=== PATIENT | female | born 1985 | race Caucasian/White ===

== ENCOUNTER 2019-04-10 12:58 | Emergency (ER) | payer SELFPAY ==
--- NOTE | 2019-04-10 14:31 | RAD ---
CHEST TWO VIEWS: 04/10/2019 HISTORY: Chest and nasal congestion for one to two weeks. COMPARISON: None. FINDINGS: No pneumothorax, pleural fluid, focal consolidation or alveolar edema. Heart and mediastinal contours are unremarkable. IMPRESSION: No acute findings. POS: [facility]
== END 2019-04-10 15:33 | disposition home or self-care (01) ==
LOC: ERS 12:58
DX: J06.9 Acute upper respiratory infection, unspecified (principal); J30.9 Allergic rhinitis, unspecified; F41.9 Anxiety disorder, unspecified; F31.9 Bipolar disorder, unspecified; Z87.891 Personal history of nicotine dependence
CPT/HCPCS: 71046

== ENCOUNTER 2019-05-30 09:25 | Emergency (ER) | payer SELFPAY | END 2019-05-30 10:30 | disposition left against medical advice (07) | LOC: ERS 09:25 | DX: Z53.21 Procedure and treatment not carried out due to patient leaving prior to being seen by health care provider (principal) ==

== ENCOUNTER 2019-06-08 19:41 | Inpatient (IN) | payer SELFPAY ==
[2019-06-08 20:42] LABS: #Basophils 0.1 thou/uL (0.0-0.2); #Eosinphils 0.1 thou/uL (0.0-0.7); #Lymphocytes 1.7 thou/uL (1.20-3.40); #Monocytes 1.7 thou/uL (0.11-0.59); #Neutrophils 13.2 thou/uL (1.40-6.50); %Basophils 0.3 % (0.0-1.0); %Eosinophils 0.8 % (0.0-10.0); %Lymphocytes 9.8 % (21.0-51.0); %Monocytes 10.4 % (0.0-10.0); %Neutrophils 78.7 % (42.0-75.0); Hemoglobin 13.7 g/dL (12.0-16.0); Mean Corpuscular HGB CONC 33.8 g/dL (32.0-36.0); Mean Corpuscular Hemoglobin 33.7 pg (27.0-31.0); Mean Corpuscular Volume 99.8 fL (78.0-98.0); Mean Platelet Volume 9.2 fL (7.4-10.4); Platelet Count 226 thou/uL (130-400); RBC Distribution Width 12.3 % (11.5-14.5); Red Blood Cell (RBC) Count 4.08 mill/uL (4.20-5.40); White Blood Cell (WBC) Count 16.8 thou/uL (4.8-10.8)
[2019-06-08 20:47] LABS: BHCG - Serum Negative (NEGATIVE); Pregs Control Background? CLEAR/WHITE (CLR/WHITE); Pregs Control Bar Appear? YES (CONTROL BAR)
[2019-06-08 20:56] LABS: ALT (SGPT) 17 U/L (8-55); AST (SGOT) 17 U/L (5-34); Albumin 3.8 g/dL (3.5-5.0); Alkaline Phosphatase 56 U/L (40-110); Anion Gap 14 mmol/L (10-20); BUN (Urea Nitrogen) 7 mg/dL (7.0-18.7); Bilirubin, Total 0.4 mg/dL (0.2-1.2); Calc. Creatinine Clearance 0 mL/min (70-130); Calcium 8.8 mg/dL (7.8-10.44); Carbon Dioxide 21 mmol/L (22-29); Chloride 109 mmol/L (98-107); Estimated GFR-MDRD 79; Globulin 3.5 g/dL (2.4-3.5); Glucose 96 mg/dL (70-105); Protein, Total 7.3 g/dL (6.0-8.3); Sodium 140 mmol/L (136-145)
[2019-06-08 20:57] LABS: Alcohol Less than 10 mg/dL (Less than 10); Salicylate Less than 8.0 mg/dL (15.0-30.0)
[2019-06-08 21:13] LABS: Thyroid Stimulating Hormone 1.2731 uIU/mL (0.35-4.94)
[2019-06-08] MEDS ORDERED: Lorazepam 2 MG/ML VIAL ONE (21:44)
[2019-06-08] MEDS ORDERED: Acetylcysteine 20% (200mg/mL) 15,000 MG in Dextrose 5% in Water 200 ML IV SCH (22:00)
[2019-06-08 23:15] LABS: Bacteria/HPF 3+ HPF (None Seen); Bilirubin Negative (Negative); Blood, Urine Negative (Negative); Clarity Turbid (Clear); Glucose, Urine (Dipstick) Normal (Negative); Leukocyte 75 Leu/uL (Negative); Nitrite 2+ (Negative); Protein, Urine (Dipstick) Negative (Neg-Trace); RBC/HPF 0-3 HPF (0-3); Squamous Epithelial 0-3 HPF (0-3); Urobilinogen Normal mg/dL (Less than 2)
[2019-06-08 23:22] LABS: Medtox Reader # READER 4; Methamphetamine Detected (NotDetected); THC/Cannabinoid Screen Detected (NotDetected)
[2019-06-08 23:23] LABS: Amphetamine Detected (NotDetected); Barbiturates Screen Not Detected (NotDetected); Benzodiazepine Screen Detected (NotDetected); Cocaine Metabolite Screen Not Detected (NotDetected); Methadone Detected (NotDetected); Opiate Screen Not Detected (NotDetected); Oxycodone Screen Not Detected (NotDetected); Phencyclidine (PCP) Not Detected (NotDetected); Tricyclic Screen Detected (NotDetected)
[2019-06-08 23:24] LABS: Medtox Control Line Valid? VALID (VALID)
[2019-06-08] MEDS ORDERED: Acetylcysteine 20% (200mg/mL) 5,000 MG in Dextrose 5% in Water 500 ML IV SCH (23:45)
--- NOTE | 2019-06-08 23:46 | CT ---
CT head noncontrast HISTORY: Altered mental status. FINDINGS: There is no evidence of acute intracranial hemorrhage or infarct. The ventricles appear nor mal in size, shape and position. There is no mass effect or shift of midline structures. Visualized paranasal sinuses remain well aerated. IMPRESSION : No acute intracranial abnormalities are demonstrated.
[2019-06-09] MEDS ORDERED: Ondansetron ODT 4 MG TAB PO PRN (01:30)
[2019-06-09] MEDS ORDERED: Ondansetron PF 4 MG/2 ML Vial IVP PRN (01:30)
[2019-06-09 02:16] VITALS: BMI 29.9
--- NOTE | 2019-06-09 03:04 | HP ---
PRIMARY CARE PHYSICIAN: Jolly Rincon. CHIEF COMPLAINT: Altered mental status. HISTORY OF PRESENT ILLNESS: This is a 34-year-old white female with a history of methamphetamine and tobacco abuse, who presented to the emergency room via EMS for altered mental status. Reportedly, the patient was with some friends and reported that she took some Excedrin around 4:30. The friends noticed that the patient started becoming confused and altered around that time, eventually EMS was called. She was very agitated and combative with them and eventually received 3 mg of Ativan by EMS; at which point, she calmed down some. She is still very confused in the emergency room, not oriented and not able to speak clearly. She did have a tox screen done in the emergency room, which showed methadone, tricyclics, amphetamines, methamphetamines, benzodiazepines, and cannabinoids in her urine, but also with very elevated acetaminophen level of 267. This was collected at about 8:30, about 4 hours after her onset of confusion and the presumed time of her ingestion of Tylenol. The patient had normal liver function tests when she came in, so she was started on the N-acetylcysteine 20-hour protocol in the emergency room and is being put in observation in the hospital. The patient is currently confused, little bit sleepy, but easily arousable, says phrases that do not really makes sense, and is not able to follow commands very well, is currently in soft restraints. REVIEW OF SYSTEMS: Unable to obtain secondary to the patient's mental status. PAST MEDICAL HISTORY: All history taken from the chart, heart arrhythmia of unknown type. PAST SURGICAL HISTORY: 1. Cholecystectomy. 2. section x3. 3. Tubal ligation. PSYCHIATRIC HISTORY: 1. Bipolar disorder. 2. Anxiety with panic attacks. 3. PTSD. 4. Insomnia. SOCIAL HISTORY: Abuses methamphetamines. Former tobacco abuser. Smokes cigarettes. No alcohol use per the chart. The patient is single. Her father is listed as her next of kin. His name is Shashank Waggoner. ALLERGIES: NO KNOWN DRUG ALLERGIES. CURRENT MEDICATIONS: Unable to obtain secondary to the patient's mental status. PHYSICAL EXAMINATION: VITAL SIGNS: Blood pressure 140/90, pulse 70, respirations 20, temperature 98.6, and O2 saturation 99% on room air. GENERAL: This is a well-developed, well-nourished white female, who is sleepy but arousable, very confused, mildly agitated. HEENT: Pupils are equal, round, and reactive to light. Oropharynx is clear without lesions, erythema, or exudate. NECK: Supple. No lymphadenopathy. No thyroid nodules or enlargement. HEART: Regular rate and rhythm. No murmurs, rubs, or gallops. LUNGS: Clear to auscultation bilaterally. No wheezes, crackles, or rhonchi. ABDOMEN: Soft, nontender to palpation. Normoactive bowel sounds. No hepatosplenomegaly or other masses. EXTREMITIES: No clubbing, cyanosis, or edema. SKIN: No rashes or lesions noted. NEUROLOGIC: The patient is moving all of her extremities spontaneously. She has no facial droop. Her speech is confused, but not slurred. PSYCHIATRIC: She is sleepy, but arousable. Oriented x1. Reportedly, more clear now per the nurse than she was when she first came in. LABORATORY DATA: CBC with a white blood cell count of 16,000, 79% neutrophils. Hemoglobin, hematocrit, and platelets all normal. Complete metabolic panel is notable for chloride of 109, bicarb of 21, and the rest is normal. TSH was normal. Serum test was negative. Urinalysis showed 2+ nitrites, 11 to 20 white blood cells, 3+ bacteria. Toxicology screen as per HPI. CT of the brain done in the emergency room shows no intracranial abnormalities. EKG done in the emergency room shows normal sinus rhythm with normal ST segments and T-waves, normal axis, and no QT prolongation. ASSESSMENT: 1. Tylenol overdose. The patient is in the significantly toxic range; however, she has no evidence of liver dysfunction at this time and we have started her on the acetylcysteine protocol. She is receiving the second dose now, the first dose of 150 mg/kg IV over 60 minutes and then currently to 50 mg/kg over 4 hours of infusion; however, write an order to do another 100 mg/kg over 16 hours for her third and final infusion, and we will monitor her liver function tests over the next day. 2. Altered mental status secondary to polysubstance abuse. We will monitor her closely in the hospital with a sitter and suicide precautions for possibility of this being an intentional overdose. Once the patient is cleared medically, she will need an [facility] evaluation prior to discharge. We will use soft restraints for now until she clears more and is able to follow commands better. 3. Leukocytosis, likely stress response. No evidence of infection at this time, though she does have some mild abnormalities of her urine. When she clears, we can reassess to see if she has any urinary tract infection sort of symptoms. 4. Gastrointestinal prophylaxis, put the patient on Pepcid twice a day. 5. Deep venous thrombosis prophylaxis. The patient is at low risk. We will use sequential compression devices while in bed. CODE STATUS: The patient is a full code. Her next of kin is her father, Shashank Waggoner. Job ID: [id number]
[2019-06-09] MEDS: Sodium Chloride 0.9% 1,000 ML IV SCH ×2 (03:26→11:18)
[2019-06-09] MEDS ORDERED: WATER IVPB SCH (04:15)
[2019-06-09] MEDS ORDERED: DEXTROSE 5% IVPB SCH (04:15)
[2019-06-09] MEDS ORDERED: ACETYLCYSTEINE IVPB SCH (04:15)
[2019-06-09 06:09] LABS: #Basophils 0.1 thou/uL (0.0-0.2); #Eosinphils 0.1 thou/uL (0.0-0.7); #Lymphocytes 2.6 thou/uL (1.20-3.40); #Neutrophils 10.9 thou/uL (1.40-6.50); %Basophils 0.3 % (0.0-1.0); %Eosinophils 0.7 % (0.0-10.0); %Lymphocytes 17.8 % (21.0-51.0); %Monocytes 6.8 % (0.0-10.0); %Neutrophils 74.5 % (42.0-75.0); Hemoglobin 15.4 g/dL (12.0-16.0); Mean Corpuscular Hemoglobin 33.7 pg (27.0-31.0); Mean Corpuscular Volume 99.2 fL (78.0-98.0); Mean Platelet Volume 9.2 fL (7.4-10.4); Platelet Count 215 thou/uL (130-400); RBC Distribution Width 12.4 % (11.5-14.5); Red Blood Cell (RBC) Count 4.57 mill/uL (4.20-5.40); White Blood Cell (WBC) Count 14.6 thou/uL (4.8-10.8)
[2019-06-09 06:43] LABS: ALT (SGPT) 28 U/L (8-55); AST (SGOT) 28 U/L (5-34); Albumin 3.7 g/dL (3.5-5.0); Alkaline Phosphatase 53 U/L (40-110); Anion Gap 14 mmol/L (10-20); BUN (Urea Nitrogen) 9 mg/dL (7.0-18.7); Bilirubin, Total 0.8 mg/dL (0.2-1.2); Calc. Creatinine Clearance 153 mL/min (70-130); Calcium 8.6 mg/dL (7.8-10.44); Carbon Dioxide 18 mmol/L (22-29); Chloride 109 mmol/L (98-107); Estimated GFR-MDRD 84; Globulin 3.5 g/dL (2.4-3.5); Glucose 98 mg/dL (70-105); Potassium 3.4 mmol/L (3.5-5.1); Protein, Total 7.2 g/dL (6.0-8.3); Sodium 138 mmol/L (136-145)
[2019-06-09] MEDS: Famotidine/PF 20 mg/2ml Vial SLOW IVP SCH ×2 (08:16→19:42)
[2019-06-09] MEDS: Lorazepam 1 MG TAB PO PRN ×2 (11:25→19:42)
--- NOTE | 2019-06-09 12:26 | PDOC.HOSPP ---
- Subjective Encounter Date: 06/09/19 Encounter Time: 12:25 Subjective: f/u for intentional overdose with multiple medications including Acetaminophen. Received NAC protocol but only got two doses per nursing. Pt admits to wanting to harm herself and was sad that she didn't succeed in killing herself. - Objective Vital Signs & Weight: Vital Signs (12 hours) Temp Pulse Resp BP BP Pulse Ox 06/09/19 11:26 98.8 F 80 16 129/63 98 06/09/19 07:34 98.3 F 75 16 141/66 H 98 06/09/19 05:00 98 F 70 20 128/85 100 06/09/19 02:00 98.1 F 83 18 134/85 100 06/09/19 01:30 98.1 F 83 18 134/85 100 Weight Weight 209 lb I&O: 06/08/19 06/09/19 06/10/19 06:59 06:59 06:59 Intake Total 625 Balance 625 Result Diagrams: 06/09/19 05:59 06/09/19 05:59 Additional Labs: Laboratory Tests 06/08/19 06/08/19 06/08/19 20:33 20:33 20:33 WBC 16.8 H Potassium 4.0 Carbon Dioxide 21 L Urine Methadone Screen Acetaminophen 267.0 H* Ur Tricyclics Screen Ur Amphetamines Screen U Methamphetamines Scrn U Benzodiazepines Scrn U Cannabinoids Screen Plasma Alcohol Less than 10 06/08/19 23:01 WBC Potassium Carbon Dioxide Urine Methadone Screen Detected H Acetaminophen Ur Tricyclics Screen Detected H Ur Amphetamines Screen Detected H U Methamphetamines Scrn Detected H U Benzodiazepines Scrn Detected H U Cannabinoids Screen Detected H Plasma Alcohol Radiology Reviewed by me: Yes (CT brain - negative) Hospitalist ROS - Medication Medications: Active Medications Generic Name Dose Route Start Last Admin Trade Name Freq PRN Reason Stop Dose Admin Famotidine 20 mg 06/09/19 09:00 06/09/19 08:16 Pepcid SLOW IVP 20 mg Q12HR RONNIE Administration Acetylcysteine 10,000 mg/ 550 mls @ 34.375 mls/hr 06/09/19 04:15 06/09/19 06: 02 Dextrose/Water IVPB 06/09/19 20:14 550 mls 0415 RONNIE Administration Lorazepam 1 mg 06/09/19 11:16 06/09/19 11:25 Ativan PO 1 mg Q6H PRN Administration Anxiety - Exam General Appearance: awake alert General - other findings: tearful Eye: PERRL, anicteric sclera ENT: normocephalic atraumatic, no oropharyngeal lesions Neck: supple, symmetric, no JVD, no thyromegaly Heart: RRR, no murmur, no gallops, no rubs, normal peripheral pulses Respiratory: CTAB, no wheezes, no rales, no ronchi, normal chest expansion, no tachypnea Gastrointestinal: soft, non-tender, non-distended, normal bowel sounds, no palpable masses Extremities: no cyanosis, no clubbing Extremities - other findings: LUE with edema in prior IV site Skin: normal turgor Neurological: cranial nerve grossly intact, no new deficit Musculoskeletal: normal tone, normal strength Psychiatric: A&O x 3 Psychiatric - other findings: agitated, alert Hosp A/P (1) Suicide attempt by acetaminophen overdose Code(s): T39.1X2A - POISONING BY 4-AMINOPHENOL DERIVATIVES, SELF-HARM, INIT Status: Acute Plan: Confirmed with patient who states she just wants to leave and figure things out , not interested in more IV's or NAC or help, s/p 2 doses of NAC last pm but lost IV site during 3rd NAC dose. (2) Polysubstance abuse Code(s): F19.10 - OTHER PSYCHOACTIVE SUBSTANCE ABUSE, UNCOMPLICATED Status: Acute Plan: See above, [facility] consult pending, Ativan PRN (3) Leukocytosis Code(s): D72.829 - ELEVATED WHITE BLOOD CELL COUNT, UNSPECIFIED Status: Acute (4) Toxic metabolic encephalopathy Code(s): G92 - TOXIC ENCEPHALOPATHY Status: Acute Plan: Resolved, pt alert and stating she wants to leave - Plan pediatric social worker, DVT proph w/SCDs s/p 2 complete doses of NAC Pt wanting to leave the hospital does not want to talk to [facility] Security notified, charge nurse notified Ativan PRN Lost IV site due to infiltration but does not want another one placed Consulted [facility] for evaluation AM lab: CMP, CBC
[2019-06-09] MEDS ORDERED: Ziprasidone 20 MG VIAL IM PRN (12:51)
[2019-06-10 06:27] LABS: Hemoglobin 12.8 g/dL (12.0-16.0); Mean Corpuscular HGB CONC 31.9 g/dL (32.0-36.0); Mean Corpuscular Hemoglobin 32.5 pg (27.0-31.0); Mean Platelet Volume 9.4 fL (7.4-10.4); Platelet Count 185 thou/uL (130-400); RBC Distribution Width 12.5 % (11.5-14.5); Red Blood Cell (RBC) Count 3.94 mill/uL (4.20-5.40); White Blood Cell (WBC) Count 8.6 thou/uL (4.8-10.8)
[2019-06-10 06:36] LABS: ALT (SGPT) 36 U/L (8-55); AST (SGOT) 29 U/L (5-34); Albumin 2.9 g/dL (3.5-5.0); Alkaline Phosphatase 41 U/L (40-110); Anion Gap 11 mmol/L (10-20); BUN (Urea Nitrogen) 12 mg/dL (7.0-18.7); Bilirubin, Total 0.3 mg/dL (0.2-1.2); Calc. Creatinine Clearance 166 mL/min (70-130); Calcium 8.1 mg/dL (7.8-10.44); Carbon Dioxide 20 mmol/L (22-29); Chloride 112 mmol/L (98-107); Estimated GFR-MDRD Greater than 90; Globulin 2.9 g/dL (2.4-3.5); Glucose 87 mg/dL (70-105); Potassium 3.7 mmol/L (3.5-5.1); Protein, Total 5.8 g/dL (6.0-8.3); Sodium 139 mmol/L (136-145)
[2019-06-10 06:41] LABS: Eosinophils 3 % (0-10); Lymphocytes 40 % (21-51); MDiff Complete? YES; Monocytes 5 % (0-10); Neutrophil 52 % (42-75)
[2019-06-10] MEDS: Famotidine/PF 20 mg/2ml Vial SLOW IVP SCH ×2 (08:48→20:03)
--- NOTE | 2019-06-10 10:49 | PDOC.PALCO ---
Palliative Care Consult - Consult Details Requesting Physician: Dr Gauthier Reason for Consult: goals of care, coping issues - Pertinent HPI 34 year old female with known methamphetamine and tobacco use. Presented to the emergency room with altered mental status. Friends identified pateint was "confused" and called EMS, transported to [facility] and identified to have acetaminophen toxicity. Admitted for medical management. Expressed she was disappointed she was not successful in ending her life. Toxicology screen positive for multiple drugs. - Pertinent PMH Cardiac arrhythmia, Bipolar disorder, Anxiety, PTSD, - Social History Smoking Status: Current every day smoker Smoking: cigarettes Alcohol Use: daily Drug Use History: marijuana, amphetamines, other (methadone, benzos) Living Situation: independent - Allergies Allergies/Adverse Reactions: Allergies Allergy/AdvReac Type Severity Reaction Status Date / Time No Known Allergies Allergy Unverified 06/09/19 02:15 - Subjective Sleeping, arousable but disengaged. Difficult to obtain a ROS. - ROS Constitutional: lethargic ENT: other (denies sore throat, congestion) Respiratory: other (denies cough or shortness of breath) Gastrointestinal: nausea, other (denies vomiting or diarrhea) Genitourinary: other (Denies dysuria, hematuria) Musculoskeletal: arthritis/arthralgias, other (Hurts all over) - Objective Vital Signs: Vital Signs - Most Recent Temp Pulse Resp BP Pulse Ox 97.9 F 64 19 116/56 L 99 06/10/19 08:00 06/10/19 08:00 06/10/19 08:00 06/10/19 08:00 06/10/19 08:00 Palliative Performance Scale: 80 - Physical Exam Constitutional: NAD HEENT: EOMI, sclera anicteric Respiratory: no wheezing, unlabored breathing Cardiovascular: RRR Gastrointestinal: continent Genitourinary: continent Musculoskeletal: no cyanosis, no clubbing, pulses present Neurology: moves all 4 limbs, no focal deficits Skin: cap refill <2 seconds, no lesions, no rash Psychiatric: flat affect Deviation from normal: depressed - Problem List (1) Palliative care encounter Code(s): Z51.5 - ENCOUNTER FOR PALLIATIVE CARE Current Visit: Yes Status: Acute (2) Polysubstance abuse Code(s): F19.10 - OTHER PSYCHOACTIVE SUBSTANCE ABUSE, UNCOMPLICATED Current Visit: Yes Status: Acute (3) Suicide attempt by acetaminophen overdose Code(s): T39.1X2A - POISONING BY 4-AMINOPHENOL DERIVATIVES, SELF-HARM, INIT Current Visit: Yes Status: Acute (4) Toxic metabolic encephalopathy Code(s): G92 - TOXIC ENCEPHALOPATHY Current Visit: Yes Status: Acute - Plan/Recommendations Plan: Palliative Care introduced. Sitter at bedside. Patient reports nausea, denies vomiting. Was able to eat breakfast. Awaiting evaluation for [facility] and placement in psychiatric facility after medically stable. Therapeutic listening and emotional support. Goal of care in place, with pending evaluation of MH[facility]. Spiritual Care consult placed Palliative care will sign off as GOC in place, and JORGE ALBERTO is her father, patient unable to sign at this time. [60] minutes spent on this encounter with >50% of the time in counseling and coordination of care. Thank you for this very appropriate consult.
--- NOTE | 2019-06-10 18:50 | PDOC.HOSPP ---
- Subjective Encounter Date: 06/10/19 Encounter Time: 11:25 Subjective: f/u for suicide attempt with Tylenol ingestion with polysubstance abuse. Received 3 doses of NAC and currently no new complaints. Awaiting approval for inpt psych unit. - Objective Vital Signs & Weight: Vital Signs (12 hours) Temp Pulse Resp BP Pulse Ox 06/10/19 08:45 99 06/10/19 08:00 97.9 F 64 19 116/56 L 99 Weight Weight 209 lb I&O: 06/09/19 06/10/19 06/11/19 06:59 06:59 06:59 Intake Total 625 3860 Balance 625 3860 Result Diagrams: 06/10/19 06:01 06/10/19 06:01 Additional Labs: Laboratory Tests 06/08/19 06/08/19 06/08/19 20:33 20:33 20:33 WBC 16.8 H Potassium 4.0 Carbon Dioxide 21 L Total Bilirubin AST ALT Alkaline Phosphatase Urine Methadone Screen Acetaminophen 267.0 H* Ur Tricyclics Screen Ur Amphetamines Screen U Methamphetamines Scrn U Benzodiazepines Scrn U Cannabinoids Screen Plasma Alcohol Less than 10 06/08/19 06/10/19 23:01 06:01 WBC Potassium Carbon Dioxide Total Bilirubin 0.3 AST 29 ALT 36 Alkaline Phosphatase 41 Urine Methadone Screen Detected H Acetaminophen Ur Tricyclics Screen Detected H Ur Amphetamines Screen Detected H U Methamphetamines Scrn Detected H U Benzodiazepines Scrn Detected H U Cannabinoids Screen Detected H Plasma Alcohol Hospitalist ROS - Medication Medications: Active Medications Generic Name Dose Route Start Last Admin Trade Name Freq PRN Reason Stop Dose Admin Famotidine 20 mg 06/09/19 09:00 06/10/19 08:48 Pepcid SLOW IVP 20 mg Q12HR RONNIE Administration Lorazepam 1 mg 06/09/19 11:16 06/09/19 19:42 Ativan PO 1 mg Q6H PRN Administration Anxiety - Exam General Appearance: NAD, awake alert Eye: PERRL, anicteric sclera ENT: normocephalic atraumatic, no oropharyngeal lesions Neck: supple, symmetric, no JVD, no thyromegaly, no lymphadenopathy Heart: RRR, no murmur, no gallops, no rubs, normal peripheral pulses Heart - other findings: S1, S2 Respiratory: CTAB, no wheezes, no rales, no ronchi, normal chest expansion Gastrointestinal: soft, non-tender, non-distended, normal bowel sounds, no palpable masses, no hepatomegaly Extremities: no cyanosis, no clubbing, no edema Skin: normal turgor, no lesions Neurological: cranial nerve grossly intact, no new deficit Musculoskeletal: normal tone, normal strength, no muscle wasting Psychiatric: A&O x 3, flat affect Hosp A/P (1) Suicide attempt by acetaminophen overdose Code(s): T39.1X2A - POISONING BY 4-AMINOPHENOL DERIVATIVES, SELF-HARM, INIT Status: Acute Plan: s/p 3 doses of NAC per protocol, continue sitter for 1:1, [facility] evaluation with pending transfer to inpt psych unit (2) Polysubstance abuse Code(s): F19.10 - OTHER PSYCHOACTIVE SUBSTANCE ABUSE, UNCOMPLICATED Status: Acute Plan: See above (3) Leukocytosis Code(s): D72.829 - ELEVATED WHITE BLOOD CELL COUNT, UNSPECIFIED Status: Acute (4) Toxic metabolic encephalopathy Code(s): G92 - TOXIC ENCEPHALOPATHY Status: Acute Plan: Improved, continue sitter for 1:1, limit psychotropes/sedation - Plan social services designee, out of bed/ambulate, DVT proph w/SCDs s/p 3 complete doses of NAC Sitter for 1:1 observation Security notified, charge nurse notified Sara MENDEZ Consulted [facility] for evaluation Likely transfer to inpt psych in 24h AM lab: MARISOL
--- NOTE | 2019-06-10 21:49 | PDOC.EVN ---
Event Note - Event Note Event Note: Notified by RN, patient in need of repeat Tylenol level, INR and EKG in order to initiate transfer to [facility]. Above ordered.
[2019-06-10 23:10] LABS: Acetaminophen Less than 6.0 mcg/mL (10.0-30.0); PTT 24.6 SEC (22.9-36.1); Prothrombin Time 13.6 SEC (12.0-14.7)
[2019-06-11 06:33] LABS: ALT (SGPT) 73 U/L (8-55); AST (SGOT) 50 U/L (5-34); Albumin 2.9 g/dL (3.5-5.0); Alkaline Phosphatase 40 U/L (40-110); Anion Gap 9 mmol/L (10-20); BUN (Urea Nitrogen) 11 mg/dL (7.0-18.7); Bilirubin, Total 0.2 mg/dL (0.2-1.2); Calc. Creatinine Clearance 178 mL/min (70-130); Calcium 8.1 mg/dL (7.8-10.44); Carbon Dioxide 24 mmol/L (22-29); Chloride 110 mmol/L (98-107); Estimated GFR-MDRD Greater than 90; Globulin 2.8 g/dL (2.4-3.5); Glucose 93 mg/dL (70-105); Potassium 3.8 mmol/L (3.5-5.1); Protein, Total 5.7 g/dL (6.0-8.3); Sodium 139 mmol/L (136-145)
[2019-06-11 07:50] VITALS: BP 116/68; TEMP 97.5
[2019-06-11] MEDS: Famotidine/PF 20 mg/2ml Vial SLOW IVP SCH (08:07)
--- NOTE | 2019-06-11 09:23 | PDOC.EVN ---
Event Note - Event Note Event Note: Spoke with Dr. Martinez at [facility] who has accepted the patient for transfer 06/11/19.
--- NOTE | 2019-06-11 09:50 | DIS ---
DATE OF ADMISSION: 06/09/2019 DATE OF DISCHARGE: 06/11/2019 DISCHARGE DIAGNOSES: 1. Suicide attempt by acetaminophen overdose, stable. 2. Polysubstance abuse. 3. Leukocytosis, secondary to demargination and stress reaction. 4. Toxic metabolic encephalopathy, resolving. CONSULTATIONS: None. PERTINENT LABORATORY AND X-RAY FINDINGS: Potassium ranged between 3.4 to 4, CO2 level ranged between 18 to 24. AST ranged between 17 to 50, ALT ranged between 17 to 73. Total bilirubin ranged between 0.2 to 0.8. Alkaline phosphatase ranged between 40 to 56. TSH 1.27. Serum beta-hCG negative. CBC showed a white blood cell count ranged between 8.6 to 16.8, hemoglobin ranged between 12.8 to 15.4, MCV ranged between 99 to 102. PT 13.6, INR 1, PTT 24.6. Urine drug screen dated 06/08/2019, positive for methadone, tricyclics, amphetamines, methamphetamines, benzodiazepines, and cannabinoids. Acetaminophen level 267, down to 6 on 06/10/2019. Plasma alcohol level on 06/08/2019, less than 10. CT of the brain without contrast dated 06/08/2019 showed no acute intracranial process. HOSPITAL COURSE: The patient was initially admitted to the medical floor after presenting status post intentional suicide attempt with ingestion of acetaminophen. The patient also with polysubstance abuse including methamphetamines and cannabis. The patient underwent general evaluation, and acetaminophen level was noted at 267 at the time of admission. The patient was initiated on N-acetylcysteine protocol, receiving 3 total doses. The patient initially was confused with altered mentation, improving with supportive management and IV fluids. Serial monitoring of LFT showed overall stable trend with stable electrolytes. Due to the patient's suicide attempt, the patient was evaluated by the [facility] Service and deemed an appropriate candidate for inpatient psychiatric care. The patient has been approved, and we will transfer to [facility] on 06/11/2019. I have examined the patient at the time of discharge and discussed followup instructions. The patient verbalized understanding and ready for transfer on 06/11/2019. DISCHARGE MEDICATIONS: None. FOLLOWUP: The patient will follow up with [facility], 06/11/2019. DIET: Regular. CODE STATUS: Full. DISPOSITION: Discharged to [facility], 06/11/2019. Job ID: [id number]
--- NOTE | 2019-06-11 16:06 | EKG ---
Test Reason : Blood Pressure : / mmHG Vent. Rate : 068 BPM Atrial Rate : 068 BPM P-R Int : 156 ms QRS Dur : 084 ms QT Int : 430 ms P-R-T Axes : 059 042 025 degrees QTc Int : 457 ms Normal sinus rhythm Normal ECG Confirmed by ROMARIO CAO ([id number]) on 06/11/2019 4:05:56 PM Referred By: ZOIE Confirmed By:ROMARIO CAO
== END 2019-06-11 11:08 | disposition short-term general hospital (02) | DRG 917 ==
LOC: ERS 19:41 → T4-B 06-09 00:20 → OBSVTOIN 06-09 00:20
PROVIDERS: ADMIT Emergency Medicine; ATTEND Emergency Medicine
DX: T39.1X2A Poisoning by 4-Aminophenol derivatives, intentional self-harm, initial encounter (principal); G92 Toxic encephalopathy; R40.2122 Coma scale, eyes open, to pain, at arrival to emergency department; R40.2212 Coma scale, best verbal response, none, at arrival to emergency department; F19.10 Other psychoactive substance abuse, uncomplicated; D72.828 Other elevated white blood cell count; F43.9 Reaction to severe stress, unspecified; F17.210 Nicotine dependence, cigarettes, uncomplicated; R40.2352 Coma scale, best motor response, localizes pain, at arrival to emergency department; F12.10 Cannabis abuse, uncomplicated; F31.9 Bipolar disorder, unspecified; F41.0 Panic disorder [episodic paroxysmal anxiety]; F43.10 Post-traumatic stress disorder, unspecified; G47.00 Insomnia, unspecified; Z98.51 Tubal ligation status; Z90.49 Acquired absence of other specified parts of digestive tract
CPT/HCPCS: 36415; 70450; 80053; 80306; 80307; 81003; 81015; 84443; 84703; 85007; 85025; 85027; 85610; 85730; 93005; 93010; A4353; J0132; J2060; J7070; S0028